=== PATIENT | female | born 1995 | race Caucasian/White ===

== ENCOUNTER → 2025-04-05 12:43 | Outpatient (REF) | payer OTHER, SELFPAY | LOC: PNTC 12:43 | PROVIDERS: ATTENDING PHYSICIAN Obstetrics & Gynecology | DX: O13.9 Gestational [pregnancy-induced] hypertension without significant proteinuria, unspecified trimester (principal) | CPT/HCPCS: 59025; 76815 ==

== ENCOUNTER 2025-04-07 17:00 | Inpatient (IN) | payer OTHER, SELFPAY ==
[2025-04-07 16:10] VITALS: BP 147/99; BMI 30.3
[2025-04-07] MEDS: LR 1000 IV ×2 (16:30→17:24)
[2025-04-07] MEDS: STADOL 1 MG IV (16:52)
[2025-04-07 17:14] LABS: Hematocrit 35.7 % (37.0-47.0); Hemoglobin 12.0 g/dL (12.0-16.0); Mean Corp Hgb Conc. 33.6 g/dL (33.0-37.0); Mean Corpuscular Volume 82.1 fL (81.0-99.0); Platelet Count 378 10^3/uL (130-400); Red Cell Dist. Width 12.9 % (11.5-14.5)
[2025-04-07] MEDS: TRANDATE 20 MG IV (17:22)
[2025-04-07 17:32] LABS: ALT (SGPT) 16 U/L (0-35); AST (SGOT) 25 U/L (14-36); Albumin 3.8 g/dl (3.5-5.0); Alkaline Phosphatase 116 U/L (38-126); Blood Urea Nitrogen 13 mg/dl (7-17); Calcium 9.6 mg/dl (8.4-10.2); Carbon Dioxide 20 mmol/L (22-30); Chloride 107 mmol/L (98-107); Estimated Creatinine Clearance > 125 ml/min; Glucose 85 mg/dl (70-99); Potassium 4.6 mmol/L (3.5-5.1); Sodium 133 mmol/L (135-145); Total Protein 6.7 g/dl (6.3-8.2); Uric Acid 4.2 mg/dl (2.5-6.2); eGFR > 60.00
[2025-04-07] MEDS: MAGNESIUM SULFATE 100 IV (17:45)
[2025-04-07] MEDS: CELESTONE SOLUSPAN 2 MG IM (17:48)
[2025-04-07] MEDS: MAGNESIUM SULFATE 40 GRAM 1000 IV (18:12)
[2025-04-07 18:13] LABS: Hematocrit 31.1 % (37.0-47.0); Hemoglobin 10.6 g/dL (12.0-16.0); Mean Corp Hgb Conc. 34.1 g/dL (33.0-37.0); Mean Corpuscular Volume 82.5 fL (81.0-99.0); Platelet Count 297 10^3/uL (130-400); Red Cell Dist. Width 12.8 % (11.5-14.5)
--- NOTE | 2025-04-07 18:36 | CON.NEO ---
Consultation
-
Date/Time Consultation Requested: 04/07/25 @ 1745
Date/Time Consultation Performed: 04/07/25 @ 1750
Requesting Provider: Lauren Branch
Performing Provider: Candelario Flores
Reason for Consultation: 29 yo @ 34 5/7 weeks with GHTN and severe PEC, now on mag , Labetolol
Consultation - Neonatology
Maternal Labs
Blood Type: O Positive
Antibody Screen: Negative
RPR: Nonreactive
Rubella: Immune
Hep B S Ag: Negative
Hep C: Negative
HIV: Nonreactive
Group B Strep: Unknown
Chlamydia/GC: Negative
Consult
Points discussed at consult:
- Management at delivery including the possibility of CPAP/intubation/surfactant discussed
- Respiratory: RDS possibility with possibility of worsening for 24-48 hrs, management including CPAP/surfactant/ventilator support may be required
- Nutrition: Hypoglycemia, need for IV fluids, gradual feed advance, Gavage feeding, importance of colostrum feeding, initiation of expression of colostrum within 3-4 hours, availability of donor milk, safety fo donor milk etc. were discussed.
- Procedures: Intubation, CPAP, IV placement, blood tests, umbilical arterial or venous lines, gavage feedings were discussed
- CVS: possibility of PDA not discussed in detail at this time
- MANAGEMENT TRAINEE: Rare possibility of IVH and need for head US, grading of IVH and intermediate accountant effects of Grade III/IV although extremely rare at >32 weeks were discussed
- Jaundice possibility and need for phototherapy discussed
- Family Centered Care: Discussed FCC with emphasis on parental participation during sign off and during management rounds and is encouraged. Availability of mely eyes camera also discussed
Mom and Dad were given the opportunity to ask questions throughout and open invitation to call if any questions come as they absorb all the information given so far.
Face to Face Time
Total [id number] Time (in Minutes): 25
[employer] [place]
[2025-04-07 18:50] LABS: Nucleated Red Blood Cells % 0 %
[2025-04-07] MEDS: LR IV (19:28)
[2025-04-07] MEDS: AMOXIL 500 MG PO (21:06)
[2025-04-07] MEDS: PITOCIN 30 UNITS/NSS 500 ML IV (21:36)
[2025-04-07] MEDS: TYLENOL 650 MG PO (23:49)
[2025-04-08 00:38] LABS: ALT (SGPT) 15 U/L (0-35); AST (SGOT) 21 U/L (14-36); Albumin 3.4 g/dl (3.5-5.0); Alkaline Phosphatase 112 U/L (38-126); Blood Urea Nitrogen 8 mg/dl (7-17); Calcium 7.7 mg/dl (8.4-10.2); Carbon Dioxide 20 mmol/L (22-30); Chloride 107 mmol/L (98-107); Estimated Creatinine Clearance > 125 ml/min; Glucose 123 mg/dl (70-99); Potassium 4.3 mmol/L (3.5-5.1); Sodium 131 mmol/L (135-145); Total Protein 6.1 g/dl (6.3-8.2); eGFR > 60.00
[2025-04-08 01:15] LABS: Hematocrit 32.6 % (37.0-47.0); Hemoglobin 11.3 g/dL (12.0-16.0); Mean Corp Hgb Conc. 34.7 g/dL (33.0-37.0); Mean Corpuscular Volume 82.5 fL (81.0-99.0); Platelet Count 330 10^3/uL (130-400); Red Cell Dist. Width 13.0 % (11.5-14.5)
[2025-04-08] MEDS: PENICILLIN 110 UNITS IV (04:08)
[2025-04-08] MEDS: STADOL 1 MG IV ×2 (04:12→05:15)
[2025-04-08] MEDS: AMOXIL PO ×2 (05:12→14:48)
[2025-04-08] MEDS: TYLENOL 650 MG PO ×3 (06:10→21:09)
[2025-04-08] MEDS: SUBLIMAZE 100 MCG EPIDURAL (06:28)
[2025-04-08] MEDS: FENTANYL/BUPIVACAINE 100 EPIDURAL ×2 (06:28→14:47)
[2025-04-08 06:34] LABS: Magnesium 4.5 mg/dl (1.6-2.3)
[2025-04-08 06:37] LABS: ALT (SGPT) 15 U/L (0-35); AST (SGOT) 21 U/L (14-36); Albumin 3.4 g/dl (3.5-5.0); Alkaline Phosphatase 120 U/L (38-126); Blood Urea Nitrogen 7 mg/dl (7-17); Calcium 7.3 mg/dl (8.4-10.2); Carbon Dioxide 20 mmol/L (22-30); Chloride 107 mmol/L (98-107); Estimated Creatinine Clearance > 125 ml/min; Glucose 117 mg/dl (70-99); Potassium 4.6 mmol/L (3.5-5.1); Sodium 129 mmol/L (135-145); Total Protein 6.1 g/dl (6.3-8.2); eGFR > 60.00
[2025-04-08] MEDS: PENICILLIN 55 UNITS IV ×2 (09:14→13:44)
[2025-04-08] MEDS: LR 1000 IV (09:15)
[2025-04-08] MEDS: MAGNESIUM SULFATE 40 GRAM 1000 IV (13:00)
[2025-04-08 13:29] LABS: Hematocrit 31.4 % (37.0-47.0); Hemoglobin 10.6 g/dL (12.0-16.0); Mean Corp Hgb Conc. 33.8 g/dL (33.0-37.0); Mean Corpuscular Volume 83.3 fL (81.0-99.0); Platelet Count 313 10^3/uL (130-400); Red Cell Dist. Width 13.0 % (11.5-14.5)
[2025-04-08 14:08] LABS: ALT (SGPT) 14 U/L (0-35); AST (SGOT) 21 U/L (14-36); Albumin 3.3 g/dl (3.5-5.0); Alkaline Phosphatase 117 U/L (38-126); Blood Urea Nitrogen 9 mg/dl (7-17); Calcium 6.8 mg/dl (8.4-10.2); Carbon Dioxide 22 mmol/L (22-30); Chloride 105 mmol/L (98-107); Estimated Creatinine Clearance > 125 ml/min; Glucose 103 mg/dl (70-99); Magnesium 6.3 mg/dl (1.6-2.3); Potassium 4.5 mmol/L (3.5-5.1); Sodium 130 mmol/L (135-145); Total Protein 6.0 g/dl (6.3-8.2); eGFR > 60.00
[2025-04-08 15:43] LABS: Cord VBG B.E. - POC -0.5 mmol/L; Cord VBG HCO3 - POC 25 mmol/L; Cord VBG O2 Sat % - POC 44.0 %; Cord VBG pCO2 - POC 42 mmHg; Cord VBG pH - POC 7.38; Cord VBG pO2 - POC 25 mmHg
[2025-04-08 15:50] LABS: Cord ABG B.E. - POC -1.7 mmol/L; Cord ABG HCO3 - POC 25 mmol/L; Cord ABG O2 Sat % - POC 30.1 %; Cord ABG pCO2 - POC 52 mmHg; Cord ABG pH - POC 7.30; Cord ABG pO2 - POC 22 mmHg
[2025-04-08] MEDS: PENICILLIN IV (15:59)
[2025-04-08] MEDS: MOTRIN 600 MG PO (16:57)
[2025-04-08] MEDS: ZOFRAN 4 MG IV (18:13)
[2025-04-08] MEDS: COLACE 100 MG PO (21:05)
[2025-04-08] MEDS: AMOXIL 500 MG PO (21:57)
[2025-04-09] MEDS: LR 1000 IV (01:05)
[2025-04-09] MEDS: TYLENOL 650 MG PO ×2 (05:36→14:25)
[2025-04-09] MEDS: AMOXIL 500 MG PO ×3 (05:36→21:08)
[2025-04-09 05:57] LABS: Hematocrit 29.1 % (37.0-47.0); Hemoglobin 9.8 g/dL (12.0-16.0); Mean Corp Hgb Conc. 33.7 g/dL (33.0-37.0); Mean Corpuscular Volume 83.1 fL (81.0-99.0); Platelet Count 348 10^3/uL (130-400); Red Cell Dist. Width 13.3 % (11.5-14.5)
[2025-04-09 06:17] LABS: ALT (SGPT) 12 U/L (0-35); AST (SGOT) 23 U/L (14-36); Albumin 2.7 g/dl (3.5-5.0); Alkaline Phosphatase 90 U/L (38-126); Blood Urea Nitrogen 8 mg/dl (7-17); Calcium 6.0 mg/dl (8.4-10.2); Carbon Dioxide 24 mmol/L (22-30); Chloride 109 mmol/L (98-107); Estimated Creatinine Clearance > 125 ml/min; Glucose 92 mg/dl (70-99); Magnesium 6.5 mg/dl (1.6-2.3); Potassium 4.6 mmol/L (3.5-5.1); Sodium 132 mmol/L (135-145); Total Protein 5.1 g/dl (6.3-8.2); eGFR > 60.00
[2025-04-09] MEDS: MOTRIN 600 MG PO ×2 (09:24→23:15)
[2025-04-09] MEDS: COLACE 100 MG PO ×2 (09:25→20:07)
[2025-04-09] MEDS: PRENATAL PLUS 1 TABLET PO (09:25)
[2025-04-09] MEDS: MAGNESIUM SULFATE 40 GRAM 1000 IV (09:26)
[2025-04-09] MEDS: FEOSOL 325 MG PO (11:16)
[2025-04-09] MEDS: PROCARDIA XL (EXTENDED RELEASE) 30 MG PO (12:04)
[2025-04-10] MEDS: AMOXIL 500 MG PO (04:53)
[2025-04-10] MEDS: PRENATAL PLUS 1 TABLET PO (08:02)
[2025-04-10] MEDS: FEOSOL 325 MG PO (08:02)
[2025-04-10] MEDS: PROCARDIA XL (EXTENDED RELEASE) 30 MG PO (08:02)
[2025-04-10] MEDS: COLACE 100 MG PO (08:02)
[2025-04-10 15:21] LABS: Syphilis/T. pallidum Ab Reflex Negative (Negative)
== END 2025-04-10 12:48 | disposition home or self-care (01) | DRG 806 ==
LOC: LDRP 17:00
PROVIDERS: ADMITTING PHYSICIAN Obstetrics & Gynecology
PROC: 3E033VJ Introduction of Other Hormone into Peripheral Vein, Percutaneous Approach (ICD-10-PCS; 2025-04-07)
PROC: 0HQ9XZZ Repair Perineum Skin, External Approach (ICD-10-PCS; 2025-04-08)
PROC: 10E0XZZ Delivery of Products of Conception, External Approach (ICD-10-PCS; 2025-04-08)
PROC: 0UQMXZZ Repair Vulva, External Approach (ICD-10-PCS; 2025-04-08)
DX: O14.14 Severe pre-eclampsia complicating childbirth (principal); N39.0 Urinary tract infection, site not specified; Z37.0 Single live birth; Z3A.34 34 weeks gestation of pregnancy; O70.0 First degree perineal laceration during delivery; O45.93 Premature separation of placenta, unspecified, third trimester; O32.6XX0 Maternal care for compound presentation, not applicable or unspecified; O23.43 Unspecified infection of urinary tract in pregnancy, third trimester; O76 Abnormality in fetal heart rate and rhythm complicating labor and delivery
CPT/HCPCS: 80053; 82570; 83735; 84156; 84550; 85025; 85027; 86780; 86850; 86900; 86901; 87070; 87086; 88307